=== PATIENT | male | born 1990 | race Caucasian/White ===

== ENCOUNTER → 2016-08-07 | Outpatient (CLI) | payer MEDICARE, MEDICAID ==
[2016-08-07 14:01] LABS: BLOOD UREA NITROGEN 14 mg/dL (6-24); CHLORIDE 105 mMol/L (96-110); CO2 35 mMol/L (22-32); CREATININE 0.7 mg/dL (0.6-1.3); ESTIMATED GFR (MDRD EQUATION) > 60; SODIUM 145 mMol/L (135-145)
== END | disposition disaster alternative care site (69) ==
LOC: LBETH 13:45
PROVIDERS: Physician Assistant
DX: Z51.81 Encounter for therapeutic drug level monitoring (principal); Z79.899 Other long term (current) drug therapy

== ENCOUNTER → 2016-08-17 | Outpatient (CLI) | payer MEDICARE, MEDICAID ==
[2016-08-17 08:57] LABS: BLOOD UREA NITROGEN 15 mg/dL (6-24); CHLORIDE 108 mMol/L (96-110); CO2 33 mMol/L (22-32); CREATININE 0.7 mg/dL (0.6-1.3); ESTIMATED GFR (MDRD EQUATION) > 60
[2016-08-17 08:59] LABS: SODIUM 147 mMol/L (135-145)
== END | disposition disaster alternative care site (69) ==
LOC: LBETH 08-16 17:46
PROVIDERS: Physician Assistant
DX: Z79.899 Other long term (current) drug therapy (principal)

== ENCOUNTER 2017-01-22 06:48 | Emergency (ER) | payer MEDICARE, MEDICAID ==
--- NOTE | ~2017-01-22 | ER ---
PATIENT'S NAME: SELENA YE [facility] AGE: 26 Y [address] ROOM: [place] [address] LOCATION: ED ADMIT DATE: 01/22/2017 ER/Outpatient Report DISCHARGE DATE: 01/22/2017 FAMILY PHYSICIAN: Physician, Unknown ATTENDING PHYSICIAN: Esteban Jaimes CHIEF COMPLAINT: Cardiac arrest. HISTORY OF PRESENT ILLNESS: Mr. Ye is a resident at [facility] in [place]. He was found on routine checks to be in his bed, incontinent of stool and not breathing. At that time, CPR was initiated by staff. The ambulance was called and he was brought in. IO was initiated. The patient was with airway with a Combitube. Hardy device was used for CPR. It is unclear as to exactly what is going on. His last known normal time is unknown. 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 His family is from the [facility] and no one is local. He has had no increase in recent medications. He recently had a vagal nerve stimulator change in the middle of December. EMS reports that he has had no spontaneous respirations and he has been in asystole the entire time. He is status post epinephrine x2 through an IO. PAST MEDICAL HISTORY: Reviewed based on his chart that accompanied him today. SOCIAL HISTORY: Reviewed based on his chart that accompanied him today. MEDICATIONS: Reviewed based on his chart that accompanied him today. ALLERGIES: REVIEWED BASED ON HIS CHART THAT ACCOMPANIED HIM TODAY. REVIEW OF SYSTEMS: Could not be completed secondary to the patient's current status and the emergent situation. Collateral information was difficult to come by. After the patient was pronounced , the another individual did note that he had been having some breath holding spells recently. PHYSICAL EXAMINATION: GENERAL: Approximately age-appropriate male with CPR in progress, recumbent on exam table with poor color. NEURO: Unresponsive. VITAL SIGNS: CPR in progress. Asystole, bagging through Combitube at 12-16 PATIENT'S NAME: SELENA YE [facility] AGE: 26 Y [address] ROOM: [place] [address] LOCATION: ED ADMIT DATE: 01/22/2017 ER/Outpatient Report DISCHARGE DATE: 01/22/2017 FAMILY PHYSICIAN: Physician, Unknown ATTENDING PHYSICIAN: Esteban Jaimes breaths a minute. End tidal CO2 19 and 20 during compressions. CHEST: Had bilateral breath sounds present with bagging. No sounds in the epigastrium. EXTREMITIES: No obvious deformities to the extremities. ABDOMEN: Appeared benign. : Incontinent of urine. GI: The patient is incontinent of stool with no rectal tone. SKIN: Core temperature is 97.8. Left lower extremity has an IO in place. The skin is mottled peripherally. LABORATORY DATA AND X-RAYS: None officially. IMPRESSION: 1. Cardiac arrest of unclear etiology. 2. . EMERGENCY DEPARTMENT COURSE: The patient was seen upon arrival. CPR remained in progress. The patient received more epinephrine as well as bicarb. The patient is on olanzapine and it appears as though his dose has been titrated down recently. I am unclear as to the etiology of his arrest currently. He had been in asystole during transport and remained so in the emergency department. I discussed the case over the phone with the patient's guardians, Ashok father and Jluia aunt from [place], [place] approximately 5 hours away and they would not want further resuscitative efforts at this time. Unfortunately, I did have to have that discussion over the phone. The ED team continued CPR per ACLS guidelines. The patient was evaluated again and found to have cardiac standstill on ultrasound. Had no palpable pulses. No spontaneous respiratory effort and was in asystole on the monitor. He was pronounced at 07:04 a.m. by myself. The family has declined autopsy at this time. The patient was taken to the [facility] for disposition of the body. Family desires to be back in [place], [place]. Please note that the Combitube have bloody secretions from the mouth and airway at the time of . MD RM CRAMER/tangela /[id number] d: 01/22/17 0942 t: 01/29/17 1013, OUTPATIENT REPORT
== END 2017-01-22 08:27 | disposition disaster alternative care site (69) ==
LOC: GMED 06:48
DX: I46.9 Cardiac arrest, cause unspecified (principal)
CPT/HCPCS: J0171; J7030

== ENCOUNTER → 2017-01-22 | Outpatient (CLI) | payer MEDICARE, MEDICAID | END | disposition disaster alternative care site (69) | LOC: GAMB 06:40 | DX: I46.9 Cardiac arrest, cause unspecified (principal) ==